=== PATIENT | female | born 1985 | race Two or more races ===

== ENCOUNTER 2025-01-13 20:46 | Emergency (ER) | payer OTHER ==
[~2025-01-13] VITALS: Ht 167.6 cm; Wt 82.7 kg
[2025-01-13 20:48] VITALS: BP 108/62; PULSE 103; RESP 20; TEMP 98.1; O2SAT 96
== END 2025-01-13 22:41 | disposition left against medical advice (07) ==
LOC: ER 20:46
DX: H92.01 Otalgia, right ear (principal); Z53.21 Procedure and treatment not carried out due to patient leaving prior to being seen by health care provider